=== PATIENT | male | born 2005 | race Hispanic/Latino ===

== ENCOUNTER 2024-10-11 12:08 | Emergency (ER) | payer BC, SELFPAY ==
[2024-10-11] MEDS ORDERED: TDAP (DIPHTH,PERTUSS(ACELL),TET VAC) 0.5 ML VIAL IMVAC ONE (12:49)
[2024-10-11] MEDS ORDERED: LIDOCAINE 2% W/EPI 1:200,000 MPF 20 ML VIAL IM ONE (12:49)
--- NOTE | 2024-10-11 14:00 | ER ---
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 Bleeding controlled ll1 with dressing. Approximate 3 inch laceration per EMS. Coronavirus screen: Client denies travel out of the [place] in the last 14 days. At this time, the client does not indicate any symptoms associated with coronavirus-19. Ebola Screen: Patient denies travel to an Ebola-affected area in the 21 days before illness onset. Complicating Factors: There are no complicating factors for this patient. Initial Sepsis Screen: Does the patient meet any 2 criteria? No. Patient's initial sepsis screen is negative. Does the patient have a suspected source of infection? No. Patient's initial sepsis screen is negative. Risk Assessment: Do you want to hurt yourself or someone else? Patient reports no desire to harm self or others. Onset of symptoms was October 11, 2024. 12:11 Method Of Arrival: EMS: [facility] ll1 12:11 Acuity: TOMAS[facility] 3 ll1 12:12 Chief complaint: EMS states: VSS, dressing placed. ll1 Historical: - Allergies: 12:12 No Known Allergies; ll1 - Home Meds: 12:12 None [Active]; ll1 - PMHx: 12:12 None; ll1 - PSHx: 12:12 None; ll1 - Immunization history:: Adult Immunizations up to date, Last tetanus immunization: unknown. - Social history:: Smoking status: Patient reports the use of cigarette tobacco products, smokes .1 packs per day. - Family history:: not pertinent. Screenin:[address] [facility] ED Fall Risk Assessment (Adult) History of falling in the last 3 months, jb4 including since admission No falls in past 3 months (0 pts) Confusion or Disorientation No (0 pts) Intoxicated or Sedated No (0 pts) Impaired Gait No (0 pts) Mobility Assist Device Used No (0 pt) Altered Elimination No (0 pt) Score/Fall Risk Level 0 - 2 = Low Risk Oriented to surroundings, Maintained a safe environment. Abuse screen: Denies threats or abuse. Nutritional screening: No deficits noted. Tuberculosis screening: No symptoms or risk factors identified. Assessment: 12:30 General: Appears in no apparent distress. comfortable, Behavior is calm, cooperative, jb4 appropriate for age. Pain: Complains of pain in left antecubital area Pain does not radiate. Pain currently is 1 out of 10 on a pain scale. Neuro: Level of Consciousness is awake, alert, obeys commands, Oriented to person, place, time, situation. Cardiovascular: Patient's skin is warm and dry. Respiratory: Airway is patent Respiratory effort is even, unlabored, Respiratory pattern is regular, symmetrical. Derm: Skin is intact, Skin is pink, warm \T\ dry. Musculoskeletal: Circulation, motion, and sensation intact. Range of motion: intact in all extremities. Injury Description: Laceration sustained to left antecubital area is clean, was sustained 30-60 minutes ago. is bleeding moderately. 14:21 Reassessment: Patient appears in no apparent distress at this time. Patient and/or jb4 family updated on plan of care and expected duration. Pain level reassessed. Patient is alert, oriented x 3, equal unlabored respirations, skin warm/dry/pink. Vital Signs: 12:11 BP 152 / 60; Pulse 82; Resp 16; Temp 98; Pulse Ox 99% ; Pain 1/10; ll1 12:11 Pain Scale: Adult ll1 ED Course: 12:10 Patient arrived in ED. ll1 12:12 Triage completed. ll1 12:12 Arm band placed on Patient placed in an exam room, on a stretcher. ll1 12:13 Jose Carlos Gallegos MD is Attending Physician. rt 14:21 Patient has correct armband on for positive identification. Bed in low position. Call jb4 light in reach. Side rails up X 1. Provided Education on: discharge instructions.. 14:21 Assist provider with laceration repair on left antecubital area that was between 2.6 to jb4 7.5 cm using Steri-strips. Set up tray. Performed by Jose Carlos Gallegos MD Dressed with Kerlix, Patient tolerated well. Patient did not have IV access during this emergency room visit. Administered Medications: 13:00 Drug: Boostrix Tdap IM 0.5 ml IM once; as a single dose Route: IM; Site: left deltoid; jb4 14:10 Follow up: Response: No adverse reaction jb4 13:37 Drug: Lidocaine-Epinephrine Infiltration -1%: (1:100,000) 10 ml 20 ml Infiltration jb4 once; to bedside {Note: administered by provider..} Volume: 20 ml; Route: Infiltration; Medication: 14:21 VIS not applicable for this client. jb4 Outcome: 13:59 Discharge ordered by . rt 14:21 Discharged to home ambulatory, with friend, jb 14:21 Condition: stable 14:21 Discharge instructions given to patient, Instructed on discharge instructions, follow up and referral plans. wound care, Demonstrated understanding of instructions, follow-up care, wound care, 14:23 Patient left the ED. jb4 Signatures: Cristhian Herrera RN RN jb4 Lizbeth Hutson RN RN ll1 Jose Carlos Gallegos MD MD rt
--- NOTE | 2024-10-11 14:00 | EDPHYS ---
Physician Documentation [facility] Name: Imer Christie Age: 18 yrs Sex: Male : 2005 Arrival Date: 10/11/2024 Time: 12:08 Bed Treatment Private MD: ED Physician Jose Carlos Gallegos HPI: 10/11 16:22 This 18 yrs old Male presents to ER via EMS with complaints of Laceration To rt Arm. 16:22 Patient presents to the ED with a laceration to the left arm at about the area of the rt elbow with a grinder and honer operator automatic just prior to arrival. Denies significant bleeding, acute complaints, unsure when his last tetanus immunization was, denies of acute complaints, symptoms are moderate severity, no other aggravating alleviating factors.. Historical: - Allergies: 12:12 No Known Allergies; ll1 - Home Meds: 12:12 None [Active]; ll1 - PMHx: 12:12 None; ll1 - PSHx: 12:12 None; ll1 - Immunization history:: Adult Immunizations up to date, Last tetanus immunization: unknown. - Social history:: Smoking status: Patient reports the use of cigarette tobacco products, smokes .1 packs per day. - Family history:: not pertinent. ROS: 16:22 Constitutional: Negative for fever, chills, and weight loss, Cardiovascular: Negative rt for chest pain, palpitations, and edema, Respiratory: Negative for shortness of breath, cough, wheezing, and pleuritic chest pain, Abdomen/GI: Negative for abdominal pain, nausea, vomiting, diarrhea, and constipation, Neuro: Negative for headache, weakness, numbness, tingling, and seizure, 16:22 Skin: Positive for laceration(s), Negative for abrasions, Exam: 16:22 Constitutional: This is a well developed, well nourished patient who is awake, alert, rt and in no acute distress. Head/Face: Normocephalic, atraumatic. Neuro: Awake and alert, GCS 15, oriented to person, place, time, and situation. Cranial nerves II-XII grossly intact. Motor strength 5/5 in all extremities. Sensory grossly intact. Cerebellar exam normal. Normal gait. Psych: Awake, alert, with orientation to person, place and time. Behavior, mood, and affect are within normal limits. 16:22 Musculoskeletal/extremity: 5 cm laceration laterally over the elbow, subcutaneous fat is involved, however, fascia, muscle, tendons are not involved, no foreign bodies identified, pulses, motor, sensation are intact. Vital Signs: 12:11 BP 152 / 60; Pulse 82; Resp 16; Temp 98; Pulse Ox 99% ; Pain 1/10; ll1 12:11 Pain Scale: Adult ll1 Laceration: 16:22 Wound Repair of 5cm ( 2.0in ) subcutaneous laceration to left arm. Linear shaped.. rt Distal neuro/vascular/tendon intact. Anesthesia: Local anesthetic administered with 3 mls of 1% lidocaine w/ Epi. Wound prep: Copious irrigation. Skin closed with 11 3-0 Silk using simple sutures and sterile technique. Dressed with 4x4's. Patient tolerated well. MDM: 12:19 Medical Screening Exam initiated rt 16:22 Differential diagnosis: superficial laceration. Data reviewed: vital signs, nurses rt notes. Test considered but Not performed: X-ray: Laceration only violates the subcutaneous fat, low suspicion for open joint, tendon involvement, fracture, x-rays not indicated. Counseling: I had a detailed discussion with the patient and/or guardian regarding the historical points, exam findings, and any diagnostic results supporting the discharge/admit diagnosis, the need for outpatient follow up, to return to the emergency department if symptoms worsen or persist or if there are any questions or concerns that arise at home. Response to treatment: the patient's symptoms have markedly improved after treatment. 10/11 12:31 Order name: Dressing - Wound; Complete Time: 14:21 rt 10/11 12:31 Order name: Gloves, Sterile; Complete Time: 13:24 rt 03 12:31 Order name: Setup Suture Tray; Complete Time: 13:24 rt 03 12:31 Order name: Wound Care; Complete Time: 13:37 rt Administered Medications: 13:00 Drug: Boostrix Tdap IM 0.5 ml IM once; as a single dose Route: IM; Site: left deltoid; jb4 14:10 Follow up: Response: No adverse reaction jb4 13:37 Drug: Lidocaine-Epinephrine Infiltration -1%: (1:100,000) 10 ml 20 ml Infiltration jb4 once; to bedside {Note: administered by provider..} Volume: 20 ml; Route: Infiltration; Disposition Summary: 10/11/24 13:59 Discharge Ordered Notes: Location: Home rt Problem: new rt Symptoms: have improved rt Condition: Stable rt Diagnosis - Laceration to left arm rt Followup: rt - With: Private Physician - When: 10 - 14 days - Reason: Discharge Instructions: - Discharge Summary Sheet rt - Laceration Care, Adult rt Forms: - Medication Reconciliation Form rt - Antibiotic Education rt - Prescription Opioid Use rt - Patient Portal Instructions rt - Leadership Thank You Letter rt Signatures: Cristhian Herrera, RN RN jb4 Lizbeth Hutson RN RN ll1 Jose Carlos Gallegos MD MD rt
[2024-10-11 14:36] VITALS: BP 152/60; TEMP 98; O2SAT 99
== END 2024-10-11 14:23 | disposition home or self-care (01) ==
LOC: ER 12:08
DX: S41.112A Laceration without foreign body of left upper arm, initial encounter (principal)